=== PATIENT | male | born 1940 | race Native Hawaiian/Other Pacific Islander ===

== ENCOUNTER 2016-09-13 01:17 | Outpatient (CLI) | payer OTHER, MEDICARE ==
[2016-09-13] MEDS ORDERED: BUSPIRONE15 MG PO (01:36)
[2016-09-13] MEDS ORDERED: ROPINIROLE0.5 MG OR (01:38)
[2016-09-13] MEDS ORDERED: LEXAPRO10 MG OR (01:40)
[2016-09-13] MEDS ORDERED: XYZAL ALLERGY 245 MG PO (01:41)
[2016-09-13] MEDS ORDERED: KLOR-CON M1010 MEQ OR (01:43)
[2016-09-13] MEDS ORDERED: LEVOFLOXACIN500 MG OR (01:44)
[2016-09-13] MEDS ORDERED: LEVO-T100 MCG PO (01:45)
[2016-09-13] MEDS ORDERED: PROAIR HFA IN (01:47)
[2016-09-13] MEDS ORDERED: ALL DAY ALLERGY10 M1 OR (01:47)
[2016-09-13] MEDS ORDERED: BUDE1AER3 INH ×2 (01:49→02:00)
[2016-09-13] MEDS ORDERED: BUDE1AER5 INH (01:49)
[2016-09-13] MEDS ORDERED: FLUTICASONE50 MCG (01:50)
[2016-09-13] MEDS ORDERED: STOOL SOFTNR100 MG OR (01:51)
[2016-09-13] MEDS ORDERED: ADVIL200 M1 OR (01:52)
[2016-09-13] MEDS ORDERED: XARELTO20 MG OR (01:53)
[2016-09-13] MEDS ORDERED: [UNRECOGNIZED DRUG - CODE] (01:56)
[2016-09-13] MEDS ORDERED: MUCINEX600 MG OR (01:57)
[2016-09-13] MEDS ORDERED: MONT10TA PO (01:57)
[2016-09-13] MEDS ORDERED: PANTPAK PO (01:58)
== END 2016-09-13 01:24 | disposition short-term general hospital (02) ==
LOC: AMB 01:17
DX: R06.02 Shortness of breath (principal); S30.1XXA Contusion of abdominal wall, initial encounter; M54.2 Cervicalgia; W18.09XA Striking against other object with subsequent fall, initial encounter; Y92.098 Other place in other non-institutional residence as the place of occurrence of the external cause
CPT/HCPCS: A0425; A0427

== ENCOUNTER 2016-09-13 01:32 | Emergency (ER) | payer OTHER, MEDICARE ==
[~2016-09-13] VITALS: Ht 170.2 cm; Wt 79.4 kg
[2016-09-13] MEDS ORDERED: BUSPIRONE15 MG PO (01:36)
[2016-09-13] MEDS ORDERED: ROPINIROLE0.5 MG OR (01:38)
[2016-09-13] MEDS ORDERED: LEXAPRO10 MG OR (01:40)
[2016-09-13] MEDS ORDERED: XYZAL ALLERGY 245 MG PO (01:41)
[2016-09-13] MEDS ORDERED: KLOR-CON M1010 MEQ OR (01:43)
[2016-09-13] MEDS ORDERED: LEVOFLOXACIN500 MG OR (01:44)
[2016-09-13] MEDS ORDERED: LEVO-T100 MCG PO (01:45)
[2016-09-13] MEDS ORDERED: PROAIR HFA IN (01:47)
[2016-09-13] MEDS ORDERED: ALL DAY ALLERGY10 M1 OR (01:47)
[2016-09-13] MEDS ORDERED: BUDE1AER3 INH ×2 (01:49→02:00)
[2016-09-13] MEDS ORDERED: BUDE1AER5 INH (01:49)
[2016-09-13] MEDS ORDERED: FLUTICASONE50 MCG (01:50)
[2016-09-13] MEDS ORDERED: STOOL SOFTNR100 MG OR (01:51)
[2016-09-13] MEDS ORDERED: ADVIL200 M1 OR (01:52)
[2016-09-13] MEDS ORDERED: XARELTO20 MG OR (01:53)
[2016-09-13] MEDS ORDERED: [UNRECOGNIZED DRUG - CODE] (01:56)
[2016-09-13] MEDS ORDERED: MUCINEX600 MG OR (01:57)
[2016-09-13] MEDS ORDERED: MONT10TA PO (01:57)
[2016-09-13] MEDS ORDERED: PANTPAK PO (01:58)
[2016-09-13 02:17] LABS: PLATELET COUNT 243 K/uL (142-355)
[2016-09-13 02:20] LABS: POTASSIUM 4.2 mmol/L (3.6-5.2); SODIUM 128 mmol/L (136-145)
[2016-09-13 02:36] LABS: PARTIAL THROMBOPLASTIN TIME 34.3 SECONDS (24.5-33.6)
[2016-09-13 04:18] VITALS: BP 120/73; TEMP 98.5
== END 2016-09-13 04:20 | disposition home or self-care (01) ==
LOC: ED 01:32
DX: I50.9 Heart failure, unspecified (principal); M50.30 Other cervical disc degeneration, unspecified cervical region; W18.09XA Striking against other object with subsequent fall, initial encounter; Y92.098 Other place in other non-institutional residence as the place of occurrence of the external cause
CPT/HCPCS: 80053; 85027; 85610; 85730; 96374; 99284; J1940

== ENCOUNTER 2016-09-15 09:41 | Outpatient (CLI) | payer OTHER, MEDICARE ==
[~2016-09-15 09:41] MED LIST: ADVIL200 M1 OR; ALL DAY ALLERGY10 M1 OR; BUDE1AER3 INH; BUDE1AER5 INH; BUSPIRONE15 MG PO; FLUTICASONE50 MCG; KLOR-CON M1010 MEQ OR; LEVO-T100 MCG PO; LEVOFLOXACIN500 MG OR; LEXAPRO10 MG OR; MONT10TA PO; MUCINEX600 MG OR; PANTPAK PO; PROAIR HFA IN; ROPINIROLE0.5 MG OR; STOOL SOFTNR100 MG OR; XARELTO20 MG OR; XYZAL ALLERGY 245 MG PO; [UNRECOGNIZED DRUG - CODE]
== END 2016-09-15 09:49 | disposition short-term general hospital (02) ==
LOC: AMB 09:41
DX: J18.8 Other pneumonia, unspecified organism (principal)
CPT/HCPCS: A0425; A0427

== ENCOUNTER 2016-09-15 09:49 | Emergency (ER) | payer OTHER, MEDICARE ==
[~2016-09-15] VITALS: Ht 170.2 cm; Wt 76.2 kg
[2016-09-15 10:48] LABS: PLATELET COUNT 232 K/uL (142-355)
[2016-09-15 10:56] LABS: POTASSIUM 4.1 mmol/L (3.6-5.2); SODIUM 133 mmol/L (136-145)
[2016-09-15 15:20] VITALS: BP 104/63; TEMP 98
== END 2016-09-15 15:20 | disposition short-term general hospital (02) ==
LOC: ED 09:49
DX: J18.9 Pneumonia, unspecified organism (principal); J47.9 Bronchiectasis, uncomplicated
CPT/HCPCS: 36600; 80053; 82805; 83880; 85027; 93005; 99284; J0456; Q9963

== ENCOUNTER 2016-09-15 15:32 | Outpatient (CLI) | payer OTHER, MEDICARE | END 2016-09-15 16:55 | disposition short-term general hospital (02) | LOC: AMB 15:32 | DX: J18.9 Pneumonia, unspecified organism (principal); J47.9 Bronchiectasis, uncomplicated | CPT/HCPCS: A0425; A0427 ==